=== PATIENT | male | born 1985 | race Caucasian/White ===

== ENCOUNTER 2018-02-21 11:35 | Inpatient (IN) | payer MEDICAID, OTHER ==
[~2018-02-21] VITALS: Ht 172.7 cm; Wt 77.6 kg
[~2018-02-21 11:35] MED LIST: RISP2TAB76 PO; VITAD1000 PO
[2018-02-21] MEDS ORDERED: ESCI10TA PO (11:46)
[2018-02-21] MEDS ORDERED: LORazepam 2 MG TABLET PO PRN (14:15)
[2018-02-21] MEDS ORDERED: ZOLPIDEM TARTRATE 10 MG TABLET PO PRN (14:15)
[2018-02-21 17:58] LABS: BASOPHILS % (AUTO) 0.5 % (0.0-2.0); EOSINOPHILS % (AUTO) 5.9 % (1.0-6.0); HEMOGLOBIN 13.6 g/dL (13.5-17.5); LYMPHOCYTES # (AUTO) 2.2 K/uL (1.0-4.8); LYMPHOCYTES % (AUTO) 33.4 % (22.0-44.0); MEAN CORPUSCULAR HEMOGLOBIN 25.6 pg (26.0-34.0); MEAN CORPUSCULAR HGB CONC 34.1 G/dL (31.0-37.0); MEAN CORPUSCULAR VOLUME 75 fL (80-100); MONOCYTES # (AUTO) 0.6 K/uL (0.1-1.0); MONOCYTES % (AUTO) 8.5 % (2.0-9.0); NEUTROPHILS # (AUTO) 3.4 K/uL (1.8-7.7); NEUTROPHILS % (AUTO) 51.7 % (40.0-70.0); PLATELET COUNT (AUTO) 390 K/uL (150-450); RED BLOOD CELL COUNT(AUTO) 5.33 MIL/uL (4.50-5.90); RED CELL DISTRIBUTION WIDTH 17.3 % (11.5-14.5)
[2018-02-21 18:08] LABS: ANION GAP 9 mmol/L (8-16); CALCIUM, TOTAL 8.9 mg/dL (8.8-10.5); CARBON DIOXIDE 28 mmol/L (22-29); CHLORIDE 106 mmol/L (98-107); CREATININE 0.86 mg/dL (0.60-1.30); GLOMERULAR FILTR. RATE CALC > 60 mL/min (>60); GLUCOSE,RANDOM 117 mg/dL (70-110); POTASSIUM 3.7 mmol/L (3.5-5.1); SODIUM SERUM 143 mmol/L (136-145); UREA NITROGEN, BLOOD 17 mg/dL (7-18)
[2018-02-21 18:14] LABS: ALANINE AMINOTRANSFERASE 112 U/L (12-78); ALBUMIN 3.9 g/dL (3.4-5.0); ALKALINE PHOSPHATASE 68 U/L (46-116); ASPARTATE AMINOTRANSFERASE 53 U/L (15-37); BILIRUBIN,TOTAL 0.5 mg/dL (0.1-1.0); TOTAL PROTEIN, SERUM 7.5 g/dL (6.4-8.2)
[2018-02-21 18:30] VITALS: BP 114/72
[2018-02-21] MEDS ORDERED: MAG HYDROX/AL HYDROX/SIMETH ES 30 ML SUSPENSION UDCUP PO PRN (19:00)
[2018-02-21] MEDS ORDERED: MAGNESIUM HYDROXIDE SUSPENSION 30 ML UDCUP PO PRN (19:00)
[2018-02-21] MEDS ORDERED: ALBUTEROL SULFATE HFA 90 MCG/PUFF 8 GM INHALER IH PRN (19:00)
[2018-02-21] MEDS ORDERED: DOCUSATE SODIUM 100 MG CAPSULE PO PRN (19:00)
[2018-02-21] MEDS ORDERED: CloNIDine HCL 0.1 MG TABLET PO PRN (19:00)
[2018-02-21] MEDS ORDERED: IBUPROFEN 400 MG TABLET PO PRN (19:00)
[2018-02-21] MEDS ORDERED: ONDANSETRON HCL 4 MG TABLET PO PRN (19:00)
[2018-02-21] MEDS ORDERED: LOPERAMIDE HCL 2 MG CAPSULE PO PRN (19:00)
[2018-02-21] MEDS ORDERED: PETROLATUM,WHITE 71 GM JELLY TP PRN (19:00)
[2018-02-21] MEDS ORDERED: ACETAMINOPHEN 325 MG TABLET PO PRN (19:00)
[2018-02-22 01:08] VITALS: BP 120/81
[2018-02-22 08:46] LABS: BASOPHILS % (AUTO) 0.7 % (0.0-2.0); HEMATOCRIT 40.4 % (41-53); HEMOGLOBIN 13.6 g/dL (13.5-17.5); LYMPHOCYTES # (AUTO) 1.9 K/uL (1.0-4.8); LYMPHOCYTES % (AUTO) 33.9 % (22.0-44.0); MEAN CORPUSCULAR HEMOGLOBIN 25.3 pg (26.0-34.0); MEAN CORPUSCULAR HGB CONC 33.7 G/dL (31.0-37.0); MEAN CORPUSCULAR VOLUME 75 fL (80-100); MONOCYTES # (AUTO) 0.5 K/uL (0.1-1.0); MONOCYTES % (AUTO) 9.4 % (2.0-9.0); NEUTROPHILS # (AUTO) 2.8 K/uL (1.8-7.7); PLATELET COUNT (AUTO) 389 K/uL (150-450); RED BLOOD CELL COUNT(AUTO) 5.39 MIL/uL (4.50-5.90); RED CELL DISTRIBUTION WIDTH 17.1 % (11.5-14.5)
[2018-02-22 08:48] VITALS: BP 106/67
[2018-02-22 09:30] LABS: ALANINE AMINOTRANSFERASE 115 U/L (12-78); ALKALINE PHOSPHATASE 63 U/L (46-116); ANION GAP 6 mmol/L (8-16); ASPARTATE AMINOTRANSFERASE 51 U/L (15-37); BILIRUBIN,TOTAL 0.4 mg/dL (0.1-1.0); CALCIUM, TOTAL 8.4 mg/dL (8.8-10.5); CARBON DIOXIDE 28 mmol/L (22-29); CHLORIDE 106 mmol/L (98-107); CREATININE 0.77 mg/dL (0.60-1.30); GLOMERULAR FILTR. RATE CALC > 60 mL/min (>60); GLUCOSE,RANDOM 82 mg/dL (70-110); POTASSIUM 4.2 mmol/L (3.5-5.1); SODIUM SERUM 140 mmol/L (136-145); THYROID STIMULATING HORMONE 1.25 uIU/mL (0.36-3.74); TOTAL PROTEIN, SERUM 7.6 g/dL (6.4-8.2); UREA NITROGEN, BLOOD 20 mg/dL (7-18)
[2018-02-22 10:10] LABS: FREE T4 (FREE THYROXINE) 0.88 ng/dL (0.76-1.46)
[2018-02-22] MEDS: RisperiDONE 2 MG TABLET PO SCH ×2 (10:17→20:20)
[2018-02-22 16:14] VITALS: BP 122/81
[2018-02-23 00:59] VITALS: BP 102/62
[2018-02-23] MEDS: RisperiDONE 2 MG TABLET PO SCH ×2 (08:24→20:33)
[2018-02-23 08:42] VITALS: BP 122/64
[2018-02-23 16:17] VITALS: BP 121/79
[2018-02-24 02:02] VITALS: BP 104/63
[2018-02-24 08:48] VITALS: BP 105/58
[2018-02-24] MEDS: RisperiDONE 2 MG TABLET PO SCH ×2 (09:10→20:20)
[2018-02-24 16:48] VITALS: BP 110/64
[2018-02-25 06:51] VITALS: BP 101/64
[2018-02-25 08:37] VITALS: BP 103/64
[2018-02-25] MEDS: RisperiDONE 2 MG TABLET PO SCH ×2 (08:58→20:00)
[2018-02-25] MEDS: HALOPERIDOL 5 MG TABLET PO PRN (15:59)
[2018-02-25 16:14] VITALS: BP 111/66
[2018-02-26 06:16] VITALS: BP 103/65
[2018-02-26] MEDS: RisperiDONE 2 MG TABLET PO SCH ×2 (08:21→20:23)
[2018-02-26 08:25] VITALS: BP 109/78
[2018-02-26 16:51] VITALS: BP 110/80
[2018-02-27 06:13] VITALS: BP 100/64
[2018-02-27] MEDS: RisperiDONE 2 MG TABLET PO SCH ×2 (08:36→20:42)
[2018-02-27 08:57] VITALS: BP 112/64
[2018-02-27 16:18] VITALS: BP 110/65
[2018-02-27] MEDS: HALOPERIDOL 5 MG TABLET PO PRN (16:22)
[2018-02-28] MEDS: RisperiDONE 2 MG TABLET PO SCH ×2 (08:51→20:21)
[2018-02-28 09:09] VITALS: BP 114/74
[2018-02-28] MEDS: HALOPERIDOL 5 MG TABLET PO PRN (16:11)
[2018-02-28 16:15] VITALS: BP 101/59
[2018-03-01 03:36] VITALS: BP 110/68
[2018-03-01 09:27] VITALS: BP 108/78
[2018-03-01] MEDS: RisperiDONE 2 MG TABLET PO SCH ×2 (10:24→21:08)
[2018-03-01] MEDS: HALOPERIDOL 5 MG TABLET PO PRN (16:13)
[2018-03-01 18:18] VITALS: BP 111/71
[2018-03-02 01:28] VITALS: BP 103/66
[2018-03-02 08:22] VITALS: BP 109/62
[2018-03-02] MEDS: RisperiDONE 2 MG TABLET PO SCH (09:56)
[2018-03-02] MEDS ORDERED: RISP2 PO (13:21)
== END 2018-03-02 13:45 | disposition home or self-care (01) | DRG 750 ==
LOC: EMS 11:35 → B2S 17:24
PROVIDERS: ADMIT Psychiatry & Neurology Child & Adolescent Psychiatry; ATTEND Psychiatry & Neurology Child & Adolescent Psychiatry
DX: F20.0 Paranoid schizophrenia (principal); R74.0 Nonspecific elevation of levels of transaminase and lactic acid dehydrogenase [LDH]; B18.2 Chronic viral hepatitis C; F10.10 Alcohol abuse, uncomplicated; F17.200 Nicotine dependence, unspecified, uncomplicated; Z59.0 Homelessness; Z71.41 Alcohol abuse counseling and surveillance of alcoholic; Z71.6 Tobacco abuse counseling
CPT/HCPCS: 80074; 83036; 84439; 84443; 99285; G0480